=== PATIENT | female | born 1990 ===

== ENCOUNTER 2020-03-13 13:38 | Emergency (ER) | payer SELFPAY ==
[2020-03-13 13:56] VITALS: BP 124/83
--- NOTE | 2020-03-13 14:13 | Emergency Department Report ---
ED Lower Extremity HPI - General Chief Complaint: Extremity Injury, Lower Stated Complaint: LFT TOE INJURY/PAIN Time Seen by Provider: 03/13/20 13:42 Source: patient Mode of arrival: Ambulatory Limitations: No Limitations - History of Present Illness Initial Comments: This is a 30-year-old female nontoxic, well nourished in appearance, no acute signs of distress presents to the ED with c/o of left great toe pain x 1 day. Patient stated that she hit her toe against the family services assistant. Patient denies any other trauma. Patient denies any numbness, tingling, fever, chills, nausea, vomiting, chest pain, shortness of breath, headache, stiff neck. Patient denies any joint swelling or joint redness. Patient denies decreased range of motion. Patient stated has decreased gait due to pain. Patient denies any allergies or significant past medical history. Patient stated she is up-to-date with tetanus as of 2017. MD Complaint: other (Left great toe) -: Last night Injury: Toes: Left Place: home Severity: mild Severity scale (0 -10): 8 Improves With: nothing Worsens With: nothing Context: direct blow Associated Symptoms: ambulatory. denies: snap/pop sensation, swelling, numbness, tingling, unable to bear weight, able to partially bear weight - Related Data Previous Rx's Medication Instructions Recorded Last Taken Type Naproxen 500 mg PO Q12H PRN #12 tablet 03/13/20 Unknown Rx Sulfamethoxazole/Trimethoprim 1 each PO BID #14 tablet 03/13/20 Unknown Rx [Bactrim DS TAB] Allergies Allergy/AdvReac Type Severity Reaction Status Date / Time No Known Allergies Allergy Unverified 03/13/20 13:50 ED Review of Systems ROS: Stated complaint: LFT TOE INJURY/PAIN Other details as noted in HPI Comment: All other systems reviewed and negative Constitutional: denies: chills, fever Eyes: denies: eye pain, eye discharge, vision change ENT: denies: ear pain, throat pain Respiratory: denies: cough, shortness of breath, wheezing Cardiovascular: denies: chest pain, palpitations Endocrine: no symptoms reported Gastrointestinal: denies: abdominal pain, nausea, diarrhea Genitourinary: denies: urgency, dysuria, discharge Musculoskeletal: denies: back pain, joint swelling, arthralgia Skin: denies: rash, lesions Neurological: denies: headache, weakness, paresthesias Psychiatric: denies: anxiety, depression Hematological/Lymphatic: denies: easy bleeding, easy bruising ED Past Medical Hx - Past Medical History Previous Medical History?: No - Surgical History Past Surgical History?: Yes Additional Surgical History: - Social History Smoking Status: Never Smoker Substance Use Type: None - Medications Home Medications: Home Medications Medication Instructions Recorded Confirmed Last Taken Type Naproxen 500 mg PO Q12H PRN #12 tablet 03/13/20 Unknown Rx Sulfamethoxazole/Trimethoprim 1 each PO BID #14 tablet 03/13/20 Unknown Rx [Bactrim DS TAB] ED Physical Exam - General Limitations: No Limitations General appearance: alert, in no apparent distress - Head Head exam: Present: atraumatic, normocephalic - Eye Eye exam: Present: normal appearance - Neck Neck exam: Present: normal inspection - Respiratory Respiratory exam: Absent: respiratory distress - Cardiovascular Cardiovascular Exam: Present: regular rate - Extremities Exam Extremities exam: Present: normal inspection, full ROM, tenderness, normal capillary refill. Absent: joint swelling - Expanded Lower Extremity Exam Left Hip exam: Present: normal inspection, full ROM. Absent: tenderness, swelling Upper Leg exam: Present: normal inspection, full ROM. Absent: tenderness, swe lling Knee exam: Present: normal inspection, full ROM. Absent: tenderness, swelling Lower Leg exam: Present: normal inspection, full ROM. Absent: tenderness, swelling Ankle exam: Present: normal inspection, full ROM. Absent: tenderness, swelling, abrasion, laceration, ecchymosis, deformity, crepidus, dislocation, erythema, anterior draw sign Foot/Toe exam: Present: full ROM, tenderness, nail avulsion (Half with acrylic nail in place). Absent: swelling, abrasion, laceration, ecchymosis, deformity, crepidus, dislocation, erythema, amputation, puncture wound, foreign body, calcaneal tenderness, tenderness at base of 5th metatarsal, subungual hematoma Neuro vascular tendon exam: Present: no vascular compromise Gait: Positive: observed and normal - Back Exam Back exam: Present: normal inspection, full ROM. Absent: tenderness, CVA tenderness (R), CVA tenderness (L), muscle spasm, paraspinal tenderness, vertebral tenderness, rash noted - Neurological Exam Neurological exam: Present: alert, oriented X3, normal gait - Psychiatric Psychiatric exam: Present: normal affect, normal mood - Skin Skin exam: Present: warm, dry, intact, normal color. Absent: rash ED Course Vital Signs 03/13/20 13:54 Temperature 99.2 F Pulse Rate 94 H Respiratory 20 Rate Blood Pressure 124/83 O2 Sat by Pulse 99 Oximetry - Reevaluation(s) Reevaluation #1: 03/13/20 14:14 Patient is speaking in full sentences with no signs of distress noted. ED Lower Extremity MDM - Radiology Data Referring Physician: JACQUELINE CHILEL Patient Name: RETA MELVIN Date of : 1990 Sex: Female Report Date: 2020-03-13 Report Status: Finalized [facility] [address] [place] [address] XRay Report Signed Patient: RETA MELVIN MR#: [id number] 7 : 1990 Acct:[id number] Age/Sex: 30 / F ADM Date: 03/13/20 Loc: ED Attending Dr: Ordering Physician: JACQUELINE CHILEL NP Date of Service: 03/13/20 Procedure(s): XR toe(s) 2+V LT Accession Number(s): [id number] cc: JACQUELINE CHILEL NP Fluoro Time In Minutes: LEFT GREAT TOE 3 VIEWS INDICATION / CLINICAL INFORMATION: MAIN. COMPARISON: None available. FINDINGS: There appears to be separation of the great toe nail from the nailbed. No other significant abnormality Signer Name: Jacqueline Leigh MD FACR Signed: 03/13/2020 2:24 PM Workstation Name: [id number] Transcribed By: MS Dictated By: Jacqueline Leigh MD Electronically Authenticated By: Jacqueline Leigh MD Signed Date/Time: 03/13/20 1424 DD/ 22 TD/TT: - Medical Decision Making This is a 30-year-old female that presents with left great toe strain with some nail avulsion. Patient is stable and was examined by me. Unable to treat the nail due to acrylic in place. X-ray has been obtained and dictated by the radiologist. Patient is notified of the x-ray report with noted by the patient. Patient does have normal gait with no tenderness and no joint swelling. No ecchymosis. no joint redness or swelling. Not warm to touch. No signs of cellulites present. Patient was instructed to RICE therapy patient stated she needs to. Patient is discharged with Motrin. See a orthopedic doctor in 3 to 5 days for further evaluation and treatment. She may need to see a recycling technician for acrylic nail removal. At time of discharge, the patient does not seem toxic or ill in appearance. No acute signs of distress noted. Patient agrees to discharge treatment plan of care. No further questions noted by the patient. Critical care attestation.: If time is entered above; I have spent that time in minutes in the direct care o f this critically ill patient, excluding procedure time. ED Disposition Clinical Impression: Injury of nail bed of toe Strain of great toe, left Qualifiers: Encounter type: initial encounter Qualified Code(s): S96.912A - Strain of unspecified muscle and tendon at ankle and foot level, left foot, initial encounter Disposition: TO HOME OR SELFCARE Is pt being admited?: No Does the pt Need Aspirin: No Condition: Stable Instructions: Nail Bed Injury, [id number], RICE Therapy for Routine Care of Injuries, [id number] Additional Instructions: Follow-up with a orthopedic doctor in 3-5 days or if symptoms worsen and continue return to emergency room as soon as possible. Prescriptions: Sulfamethoxazole/Trimethoprim [Bactrim DS TAB] 1 each PO BID #14 tablet Naproxen 500 mg PO Q12H PRN #12 tablet PRN Reason: Pain , Severe (7-10) Referrals: PRIMARY CAREMD [Referring] - 3-5 Days WENDY PRATT MD [Staff Physician] - 3-5 Days Forms: Work/School Release Form(ED) Time of Disposition: 14:41
--- NOTE | 2020-03-13 14:28 | XRay Report ---
LEFT GREAT TOE 3 VIEWS INDICATION / CLINICAL INFORMATION: MAIN. COMPARISON: None available. FINDINGS: There appears to be separation of the great toe nail from the nailbed. No other significant abnormali ty Signer Name: Srinivasan Leigh MD FACR Signed: 03/13/2020 2:24 PM Workstation Name: [id number]
== END 2020-03-13 14:52 | disposition home or self-care (01) ==
LOC: ED 13:38
DX: S96.912A Strain of unspecified muscle and tendon at ankle and foot level, left foot, initial encounter (principal); S99.292A Other physeal fracture of phalanx of left toe, initial encounter for closed fracture; Z79.899 Other long term (current) drug therapy; Z98.890 Other specified postprocedural states; W22.8XXA Striking against or struck by other objects, initial encounter; Y93.89 Activity, other specified; Y92.009 Unspecified place in unspecified non-institutional (private) residence as the place of occurrence of the external cause; Y99.8 Other external cause status

== ENCOUNTER 2021-01-24 20:00 | Emergency (ER) | payer SELFPAY ==
[2021-01-24 21:54] VITALS: BP 121/79
--- NOTE | 2021-01-24 22:15 | Emergency Department Report ---
Minor Respiratory - HPI Chief Complaint: Sore Throat Stated Complaint: SORE THROAT Time Seen by Provider: 01/24/21 22:01 Duration: 2 Days Pain Location: Throat, Nose Severity: severe Minor Respiratory: Yes Rhinorrhea, Yes Sore Throat, Yes Able to Tolerate Fluids, Yes Fever, No Cough, No Sick Contacts, No Hemoptysis, No Chest Pain, No Shortness of Breath Other History: Chief complaint sore throat runny nose. HPI: 30-year-old female without significant past medical history presents with sore throat runny nose for 2 days. Ibuprofen Chloraseptic did not provide any relief. Subjective fever. Patient diagnosed with COVID-19 in September. ED Review of Systems ROS: Stated complaint: SORE THROAT Other details as noted in HPI Constitutional: fever Eyes: denies: eye pain, eye discharge ENT: throat pain, congestion. denies: ear pain Respiratory: denies: cough, shortness of breath Cardiovascular: denies: chest pain ED Past Medical Hx - Past Medical History Previous Medical History?: No - Surgical History Past Surgical History?: No Additional Surgical History: - Social History Smoking Status: Never Smoker Substance Use Type: None - Medications Home Medications: Home Medications Medication Instructions Recorded Confirmed Last Taken Type Naproxen 500 mg PO Q12H PRN #12 tablet 03/13/20 01/24/21 Unknown Rx Sulfamethoxazole/Trimethoprim 1 each PO BID #14 tablet 03/13/20 01/24/21 Unknown Rx [Bactrim DS TAB] Minor Respiratory Exam - Exam General: Vital signs noted. No distress. Alert and acting appropriately. HEENT: Yes Moist Mucous Membranes, Yes Rhinorrhea, No Pharyngeal Erythema, No Pharyngeal Exudates, No Conjuctival Injection Neck: Yes Supple Lungs: Yes Good Air Exchange, No Wheezes, No Ronchi Neurologic: Alert and oriented, no deficits. Musculoskeletal: Unremarkable. ED Course Vital Signs 01/24/21 01/24/21 01/24/21 20:18 21:47 21:52 Temperature 99.2 F 97.8 F 97.8 F Pulse Rate 53 L 81 81 Respiratory 16 16 16 Rate Blood Pressure 135/80 121/79 Blood Pressure 122/76 [Left] O2 Sat by Pulse 100 100 100 Oximetry ED Medical Decision Making - Lab Data Vital Signs - 24 hr 01/24/21 01/24/21 01/24/21 20:18 21:47 21:52 Temperature 99.2 F 97.8 F 97.8 F Pulse Rate 53 L 81 81 Respiratory 16 16 16 Rate Blood Pressure 135/80 121/79 Blood Pressure 122/76 [Left] O2 Sat by Pulse 100 100 100 Oximetry - Medical Decision Making Viral URI: Normal oropharyngeal exam with normal voice do not suspect epiglottitis or serious neck infection, suspect posterior nasal oropharyngeal irritation from postnasal drainage. Recommended [id number] loratadine and Flonase. Critical care attestation.: If time is entered above; I have spent that time in minutes in the direct care of this critically ill patient, excluding procedure time. ED Disposition Clinical Impression: Viral URI Disposition: 01 HOME / SELF CARE / HOMELESS Is pt being admited?: No Does the pt Need Aspirin: No Condition: Stable Instructions: Upper Respiratory Infection, Adult Referrals: ANDREA DOMINGUEZ MD [Staff Physician] - as needed
== END 2021-01-24 22:35 | disposition home or self-care (01) ==
LOC: ED 20:00
DX: J06.9 Acute upper respiratory infection, unspecified (principal); B97.89 Other viral agents as the cause of diseases classified elsewhere
CPT/HCPCS: 99282